=== PATIENT | male | born 1965 | race Caucasian/White ===

== ENCOUNTER 2023-08-04 15:24 | Emergency (ER) | payer OTHER, SELFPAY ==
--- NOTE | ~2023-08-04 | CT_ITS ---
CT SOFT TISSUE NECK WITH CONTRAST CLINICAL INFORMATION: Rule out left peritonsillar abscess. COMPARISON: None available. TECHNIQUE: Following the intravenous administration of 100 mL of Omnipaque 350 intravenous contrast, helical imaging was performed in the axial plane with generation of coronal and sagittal reformatted images. This CT examination was performed using dose optimization techniques as appropriate, variously including the following: *Automated exposure control *Adjustment of mA and/or kV according to patient size (this includes techniques or standardized protocols for targeted exams where dose is matched to indication/reason for exam; i.e. extremities or head) *Use of iterative reconstruction technique FINDINGS: Assessment is limited due to dental streak artifact obscuring the palatine tonsils bilaterally. There is asymmetric enlargement of the left palatine tonsil which is heterogeneous in attenuation suggesting palatine tonsillitis. No drainable peritonsillar fluid collection is seen with assessment again limited by dental streak artifact. No retropharyngeal cellulitis. Orbital soft tissues, parotid glands, submandibular glands, and thyroid gland are unremarkable. There are multiple significantly enlarged jugular chain lymph nodes bilaterally that may be reactive though should be followed to exclude alternative etiologies. If these lymph nodes do not resolve clinically, consider soft tissue sampling. There are no acute osseous findings. Paranasal sinuses remain well-aerated. Mastoid air cells are clear. Punctate metallic density within the right buccal space. Imaged upper lungs are clear. Imaged upper mediastinum is unremarkable. The partially imaged intracranial compartment is unremarkable. CT/CT soft tissue neck w IV con IMPRESSION: - Assessment is limited due to dental streak artifact obscuring the palatine tonsils bilaterally. There is asymmetric enlargement of the left palatine tonsil which is heterogeneous in attenuation suggesting palatine tonsillitis. No drainable peritonsillar fluid collection is seen with assessment again limited by dental streak artifact. No retropharyngeal cellulitis. - There are multiple significantly enlarged jugular chain lymph nodes bilaterally that may be reactive though should be followed to exclude alternative etiologies. If these lymph nodes do not resolve clinically, consider soft tissue sampling.
--- NOTE | ~2023-08-04 | XR_ITS ---
EXAMINATION: XR CHEST CLINICAL INFORMATION: Upper respiratory infection. COMPARISON: None available. TECHNIQUE: Frontal portable view of the chest was obtained. 1659 hours FINDINGS: Lung volume is low. Lungs are clear. No pulmonary vascular congestion. There is no pleural effusion. The heart size is normal. The cardiac and mediastinal contours are normal. There are multilevel degenerative changes of dorsal spine. XR/XR chest 1V IMPRESSION: Unremarkable examination.
--- NOTE | 2023-08-04 15:41 | ED.GENADULT ---
HPI - General Adult General Chief complaint: Upper Respiratory Symptoms Stated complaint: ?URI Time Seen by Provider: 08/04/23 15:52 History of Present Illness HPI narrative: 58 y/o M patient; without significant PMH; presents from home with report of one week of generalized body aches, sore throat, and lightheadedness. The patient states his primary complaint started with the sore throat, especially on the left-side. It made eating and drinking very difficult. He has noticed weight loss during this period. He had a negative strep test with his PCP. He was placed on Amoxicillin on Monday (07/31/2023) for 10 day course. He had a negative COVID home swap. He otherwise denies: vomiting, diarrhea, headache. He has had chills. Related Data Allergies Allergy/AdvReac Type Severity Reaction Status Date / Time No Known Allergies Allergy Verified 08/04/23 15:40 Review of Systems Review of Systems: Yes all other systems are reviewed and are negative [facility] Past Medical History Attestation statement: The following information was validated with the patient. Source: old records reviewed Social History Social History Advance Directives: No Advance Directives Information Provided: No Physical Exam ED Vital Signs: Vital Signs - 24 hr 08/04/23 15:42 Temperature 98.5 F Pulse Rate 78 Respiratory Rate 18 Blood Pressure 125/80 Pulse Oximetry 98 Oxygen Delivery Method Room Air BMI result Body Mass Index 27.9 Patient is afebrile and hemodynamically stable. Const General: cooperative and no acute distress HENMT Other: Erythematous posterior oropharynx without exudates or uvular deviation, left > right tonsillar area Head: Yes normal to inspection and Yes atraumatic Ears: TM's normal bilaterally Mouth: tongue normal and moist mucous membranes Eyes General: appearance normal, both eyes and all related structures Pupils: Equal, round and reactive pupils present EOM: EOMs intact bilaterally Neck Neck: Yes full ROM, Yes supple and No tender Chest Chest palpation & inspection: normal inspection of the chest Resp Effort & Inspection: normal respiratory effort and no respiratory distress Auscultation: clear to auscultation bilaterally Cardio Rate: regular rate Rhythm: regular rhythm Peripheral pulses: Peripheral pulses 2+ throughout GI Inspection: Yes normal to inspection and No distended Palpation (GI): Soft to palpation, not firm, nontender and no guarding Auscultation: normal bowel sounds General: Yes no CVA tenderness Back/Spine/Pelvis Back: no CVA tenderness Neuro Cranial nerves: Yes Equal, round and reactive pupils present Course Course Course Narrative: RME performed by Cecelia Bah PA-C. Patient is a 58 year old assigned male at presenting to the emergency department with dizziness, URI symptoms, and feeling generally unwell. Labs, imaging, and swabs ordered. Patient placed back in the waiting room pending room availability and results. Reevaluation(s) Reevaluation #1: Patient is afebrile and hemodynamically stable. Reviewed triage work up - added 1L IVF and CXR. Reevaluation #2: Labs reviewed. COVID/Flu/RSV negative. Overton and Strep negative. No evidence of acute leukocytosis or dehydration. Will obtain CT Soft Tissue Neck to r/o juancho-tonsillar abscess given hx of left-sided throat pain radiating into left ear that initially improved and has now worsened again. Will provided Toradol 15mg IV for pain management. Reevaluation #3: CT Soft Tissue Neck with concern for tonsillitis. Provided Decadron 10mg IV. Plan: Discharge to home with PCP follow up Return precautions given Medications Administered Discontinued Medications Generic Name Dose Route Start Last Admin Trade Name Freq PRN Reason Stop Dose Admin Sodium Chloride 1,000 mls @ 999 mls/hr 08/04/23 16:30 08/04/23 18:46 Ns IV 08/04/23 17:30 Infused .Q1H1M MARK Infusion Iohexol 60 ml 08/04/23 18:47 08/04/23 18:47 Iohexol 350 Mg/Ml 100 Ml Infus..Btl IV 08/04/23 18:48 60 ml ONCE ONE Administration Ketorolac Tromethamine 15 mg 08/04/23 18:02 08/04/23 18:46 Ketorolac Tromethamine 15 Mg/Ml Vial IVPUSH 08/04/23 18:03 15 mg ONCE ONE Administration Medical Decision Making Lab Data 08/04/23 16:54 08/04/23 16:54 Labs: Lab Results 08/04/23 08/04/23 08/04/23 Range/Units 16:54 16:55 17:05 WBC 8.7 (4.8-10.8) X10*3/uL RBC 4.79 (4.60-5.80) X10*6/uL Hgb 14.0 (14.0-18.0) g/dl Hct 40.7 L (42.0-52.0) % MCV 85.0 (80.0-98.0) fL MCH 29.2 (27.0-33.0) pg MCHC 34.4 (31.0-36.0) g/dl RDW 11.6 (11.0-16.0) % Plt Count 233 (160-400) X10*3/uL MPV 8.9 L (9.4-12.4) fL Immature Gran % (Auto) 0.3 (0.0-0.4) % Neut % (Auto) 68.9 (45-73) % Lymph % (Auto) 21.5 (20-40) % Overton % (Auto) 8.6 (2-11) % Eos % (Auto) 0.5 (0-4) % Baso % (Auto) 0.2 (0-2) % Lymph # (Auto) 1.9 (1.2-4.9) X10*3/uL Overton # (Auto) 0.8 (0.1-1.2) X10*3/uL Eos # (Auto) 0.0 (0.0-0.4) X10*3/uL Baso # (Auto) 0.0 (0.0-0.2) X10*3/uL Abs Immat Gran (auto) 0.03 (0.00-0.03) X10*3/uL Absolute Neuts (auto) 6.0 (2.0-8.3) x10*3/uL Absolute Nucleated RBC 0.000 (0.0-0.012) X10*3/uL Nucleated RBC % (auto) 0.0 (0.0-0.2) /100WBC PT 13.8 H (11.1-13.3) SEC INR 1.1 (0.9-1.1) APTT 26.6 (26.0-36.4) SEC Sodium 139 (135-145) mmol/L Potassium 3.8 (3.3-5.1) mmol/L Chloride 99 (96-108) mmol/L Carbon Dioxide 29 (22-29) mmol/L Anion Gap 15 (12-20) BUN 19 H (9-16) mg/dL Creatinine 0.84 (0.5-1.4) mg/dL Estim Creat Clear Calc 111.9 Estimated GFR > 60 Random Glucose 101 (60-115) mg/dL Calcium 9.9 (8.4-10.2) mg/dL Magnesium 2.3 (1.6-2.6) mg/dL Total Bilirubin 1.1 H (0.0-1.0) mg/dL AST 42 H (5-37) U/L ALT 48 H (0-40) U/L Alkaline Phosphatase 115 (39-117) U/L Troponin I High Sens 5.6 (<3.5-35.0) ng/L Total Protein 7.5 (6.5-8.0) g/dL Albumin 4.3 (3.5-5.0) g/dL Monoscreen Negative (Negative) Influenza Type A (PCR) NEGATIVE (Negative) Influenza Type B (PCR) NEGATIVE (Negative) RSV RNA Qual (PCR) NEGATIVE (Negative) SARS-CoV-2 RNA (RT-PCR) NEGATIVE (Negative) S. pyogenes GrpA NATO Negative (Negative) Independent Interpretation I performed an independent interpretation of an: EKG Interpretation: NSR 71BPM with T wave inversion in lead III. Discharge Plan Discharge Clinical Impression: Acute tonsillitis Patient Disposition: Home, Self-Care Instructions: Tonsillitis (ED) Additional Instructions: As we discussed, you were seen today with a sore throat, body aches, and concern for dehydration. Your labs were reassuring - your COVID/Flu/RSV, Strep, and Overton were negative. The CT scan of your neck showed tonsillitis. You were treated with a steroid to help the pain and swelling. You can continue to use Ibuprofen 600mg every 6 hours and Tylenol 650mg every 6 hours as needed for pain. Follow up with your PCP within the next 1 week for re-evaluation. Return to the ED for fever, worsening throat pain, or passing out.
[2023-08-04 15:42] VITALS: BP 125/80; PULSE 78; RESP 18; TEMP 36.9; O2SAT 98; BMI 27.9
--- NOTE | 2023-08-04 15:42 | ECG_ITS ---
Test Reason : UPPER RESPIRATORY Blood Pressure : / mmHG Vent. Rate : 071 BPM Atrial Rate : 071 BPM P-R Int : 174 ms QRS Dur : 098 ms QT Int : 396 ms P-R-T Axes : 025 014 -15 degrees QTc Int : 430 ms Normal sinus rhythm Inferior infarct , age undetermined Cannot rule out Anterior infarct , age undetermined Abnormal ECG No previous ECGs available Referred By: Cecelia Bah Electronically Signed By:HIGINIO OSEGUERA MD
[2023-08-04 17:03] LABS: MANUAL DIFF FLAG NO
[2023-08-04 17:06] LABS: Basophils Percent Auto 0.2 % (0-2); Eosinophils Percent Auto 0.5 % (0-4); Hematocrit 40.7 % (42.0-52.0); Imm Gran Abs Auto 0.03 X10*3/uL (0.00-0.03); Imm Gran Pct Auto 0.3 % (0.0-0.4); Lymphocytes Absolute Auto 1.9 X10*3/uL (1.2-4.9); Lymphocytes Percent Auto 21.5 % (20-40); Mean Corpuscular HGB Conc 34.4 g/dl (31.0-36.0); Mean Corpuscular Hemoglobin 29.2 pg (27.0-33.0); Mean Platelet Volume 8.9 fL (9.4-12.4); Monocytes Absolute Auto 0.8 X10*3/uL (0.1-1.2); Monocytes Percent Auto 8.6 % (2-11); Neutrophils Percent Auto 68.9 % (45-73); Platelet Count 233 X10*3/uL (160-400); Red Blood Count 4.79 X10*6/uL (4.60-5.80); Red Cell Distribution Width 11.6 % (11.0-16.0); White Blood Count 8.7 X10*3/uL (4.8-10.8)
[2023-08-04 17:11] LABS: INTERNATIONAL NORM RATIO 1.1 (0.9-1.1); Prothrombin Time 13.8 SEC (11.1-13.3)
[2023-08-04 17:13] LABS: Partial Thromboplastin Time 26.6 SEC (26.0-36.4)
[2023-08-04 17:30] LABS: IDNOW Serial# 08D9AD1C; Strep A Nucleic Acid Negative (Negative)
[2023-08-04] MEDS: 0.9 % Sodium Chloride 1,000 ML 999 ML IV (17:32)
[2023-08-04 17:33] LABS: Monotest Negative (Negative)
[2023-08-04 17:35] LABS: Alanine Aminotransferase 48 U/L (0-40); Albumin Level 4.3 g/dL (3.5-5.0); Alkaline Phosphatase 115 U/L (39-117); Anion Gap 15 (12-20); Aspartate Amino Transferase 42 U/L (5-37); Bilirubin Total 1.1 mg/dL (0.0-1.0); Blood Urea Nitrogen 19 mg/dL (9-16); Calcium 9.9 mg/dL (8.4-10.2); Carbon Dioxide 29 mmol/L (22-29); Chloride 99 mmol/L (96-108); Creatinine Clr Calc Pharmacy 111.9; Estimated Glomerular Filt Rate > 60; Glucose Random 101 mg/dL (60-115); Magnesium 2.3 mg/dL (1.6-2.6); Potassium 3.8 mmol/L (3.3-5.1); Sodium 139 mmol/L (135-145); Total Protein 7.5 g/dL (6.5-8.0)
[2023-08-04 17:43] LABS: Troponin-I High Sensitivity 5.6 ng/L (<3.5-35.0)
[2023-08-04 17:45] LABS: Influenza A PCR NEGATIVE (Negative); Influenza B PCR NEGATIVE (Negative); Resp Syncy Virus RNA Qual PCR NEGATIVE (Negative); SARS COV2 PCR INHOUSE NEGATIVE (Negative)
[2023-08-04] MEDS: Ketorolac Tromethamine 15 MG/ML VIAL IVPUSH (18:46)
[2023-08-04] MEDS: iohexoL 350 MG/ML 100 ML INFUS..BTL 60 ML IV (18:47)
[2023-08-04 20:41] VITALS: BP 138/78; PULSE 77; RESP 18; TEMP 36.9; O2SAT 97
[2023-08-04] MEDS: dexAMETHasone sod phosphate 10 MG/ML VIAL IVPUSH (20:42)
== END 2023-08-04 20:59 | disposition home or self-care (01) ==
PROVIDERS: Physician Assistant Medical; Emergency Provider Emergency Medicine; PCP Internal Medicine
DX: J03.90 Acute tonsillitis, unspecified (principal); J06.9 Acute upper respiratory infection, unspecified; Z20.822 Contact with and (suspected) exposure to COVID-19; Z20.828 Contact with and (suspected) exposure to other viral communicable diseases; R53.81 Other malaise; R42 Dizziness and giddiness; R79.1 Abnormal coagulation profile
CPT/HCPCS: 0241U; 36415; 70491; 71045; 80053; 83735; 84484; 85025; 85610; 85730; 86308; 87651; 93005; 96361; 96374; 96375; 99284; J1100; J1885; Q9967

== ENCOUNTER → 2023-08-04 15:42 | Outpatient (BNV) | payer OTHER, SELFPAY | PROVIDERS: Emergency Provider Emergency Medicine; PCP Internal Medicine; Visit Provider Internal Medicine Cardiovascular Disease | DX: J06.9 Acute upper respiratory infection, unspecified (principal) | CPT/HCPCS: 93010 ==

== ENCOUNTER 2024-04-18 14:23 | Outpatient (REF) | payer OTHER, SELFPAY ==
--- NOTE | ~2024-04-18 | US_ITS ---
EXAMINATION: US SOFT TISSUE OF THE NECK CLINICAL INFORMATION: Enlarged cervical lymph nodes. COMPARISON: CT soft tissue neck 08/04/2023. TECHNIQUE: Linear transducer grayscale and color Doppler examination of the right and left neck. FINDINGS: Multiple bilateral neck lymph nodes are noted. In the right neck is a lymph node measuring 9 mm in short axis with slight loss of fatty hilum. Remainder of the bilateral lymph nodes are morphologically benign-appearing. US/US soft tiss head and/or neck IMPRESSION: 1. Multiple bilateral neck lymph nodes are noted. 2. In the right neck is a lymph node measuring 9 mm in short axis with slight loss of fatty hilum. 3. Remainder of the bilateral lymph nodes are morphologically benign-appearing. Electronically signed by: Sarah Velasquez MD 04/27/2024 03:46 PM EDT
== END 2024-04-18 14:24 | disposition home or self-care (01) ==
LOC: HO.US 14:23
PROVIDERS: PCP Internal Medicine; Visit Provider Internal Medicine
DX: R59.9 Enlarged lymph nodes, unspecified (principal)
CPT/HCPCS: 76536

== ENCOUNTER 2024-05-20 18:11 | Emergency (ER) | payer OTHER, SELFPAY ==
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
[2024-05-20 18:35] VITALS: BP 146/88; PULSE 79; RESP 18; TEMP 36.6; O2SAT 98; BMI 27.1
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
[2024-05-20] MEDS: Ibuprofen 600 MG TABLET PO (20:32)
[2024-05-20 20:47] VITALS: BP 146/88; PULSE 79; RESP 18; TEMP 36.6; O2SAT 98
== END 2024-05-20 20:48 | disposition home or self-care (01) ==
PROVIDERS: Emergency Provider Emergency Medicine; PCP Internal Medicine
DX: M79.671 Pain in right foot (principal)
CPT/HCPCS: 73610; 73630; 99283; 99284